=== PATIENT | female | born 2000 | race Caucasian/White ===

== ENCOUNTER 2023-11-14 15:06 | Outpatient (CLI) | payer BC, SELFPAY ==
[2023-11-14 15:54] LABS: Beta HCG Quantitative < 2.39 mIU/ML
== END 2023-11-14 15:07 | disposition home or self-care (01) ==
LOC: ANHLAB 15:09
PROVIDERS: Visit Provider Obstetrics & Gynecology
DX: Z30.011 Encounter for initial prescription of contraceptive pills (principal)
CPT/HCPCS: 36415; 84702